=== PATIENT | female | born 1950 | race Caucasian/White ===

== ENCOUNTER 2018-04-29 15:58 | Emergency (ER) | payer OTHER, MEDICARE | END 2018-04-29 18:36 | disposition home or self-care (01) | LOC: E/R 15:58 | DX: S09.90XA Unspecified injury of head, initial encounter (principal); R51 Headache; V49.9XXA Car occupant (driver) (passenger) injured in unspecified traffic accident, initial encounter | CPT/HCPCS: 70450; 99284-25 ==